=== PATIENT | female | born 1965 | race African-American/Black ===

== ENCOUNTER 2022-12-26 12:41 | Outpatient (CLI) | payer MEDICARE, MEDICAID, SELFPAY ==
--- NOTE | ~2022-12-26 | XR_ITS ---
Right Knee Technique: AP, lateral, and sunrise views were obtained. Clinical History: Osteoarthritis Findings: No fracture or dislocation is seen. There are large tricompartmental osteophytes. There is narrowing in all 3 joint compartments. Soft tissues are unremarkable. No joint effusion is seen. Impression: Severe tricompartmental osteoarthritis, as detailed above. Reviewed, dictated and finalized at location . Impression: Severe tricompartmental osteoarthritis, as detailed above.
--- NOTE | ~2022-12-26 | XR_ITS ---
Left foot Technique: AP and lateral standing views were obtained. Clinical History: Osteoarthritis Findings: No acute fracture or dislocation is seen. There is mild hallux valgus. There are minimal de generative changes at the midfoot articulations. Soft tissues are unremarkable. Impression: Mild hallux valgus and minimal degenerative change at the midfoot articulations. Reviewed, dictated and finalized at location . Impression: Mild hallux valgus and minimal degenerative change at the midfoot articulations .
--- NOTE | ~2022-12-26 | XR_ITS ---
Left Knee Technique: AP, lateral, and sunrise views were obtained. Clinical History: Osteoarthritis Findings: No fracture or dislocation is seen. There a large tricompartmental osteophytes. There is na rrowing of the medial and patellofemoral compartments. Small joint effusion is seen. Impression: Advanced tricompartmental osteoarthritis, as detailed above. Small joint effusion. Reviewed, dictated and finalized at location . Impression: Advanced tricompartmental osteoarthritis, as detailed above. Small joint effusion.
--- NOTE | ~2022-12-26 | XR_ITS ---
Bilateral Hands Technique: Bilateral PA, oblique, and lateral views, and ball-catcher's view were obtained. Clinical History: Osteoarthritis Findings: No acute fracture or dislocation is seen. There is minimal degenerative change of the bilat eral second PIP joints. There is moderate degenerative change of the left first carpal metacarpal kavon nt. There is mild degenerative change at the right first carpometacarpal joint. Soft tissues are unre markable. Impression: Moderate osteoarthritis of the left first CMC joint. Additional mild degenerative changes bilaterally, as detailed above. Reviewed, dictated and finalized at location [facility]. Impression: Moderate osteoarthritis of the left first CMC joint. Additional mild degenerative changes bilaterally, as detailed above.
--- NOTE | ~2022-12-26 | XR_ITS ---
Right foot Technique: AP and lateral standing views were obtained. Clinical History: Osteoarthritis Findings: No acute fracture or dislocation is seen. There is mild hallux valgus with minimal degenera tive change at the first MTP joint. Soft tissues are unremarkable. Impression: Mild hallux valgus with minimal degenerative change at the first MTP joint. Reviewed, dictated and finalized at [facility]. Impression: Mild hallux valgus with minimal degenerative change at the first MTP joint.
[2022-12-26 13:20] LABS: Hematocrit 40.5 % (37.0-47.0); Hemoglobin 13.2 g/dL (12.0-15.0); Mean Corpuscular HGB Conc 32.6 g/dl (32-36); Mean Corpuscular Hemoglobin 26.9 pg (26-34); Mean Corpuscular Volume 82.5 fl (80-100); Mean Platelet Volume 8.7 fl (7.4-10.4); Platelet Count Result 393 k/mm3 (150-375); Red Blood Count 4.91 M/mm3 (4.2-5.4); Red Cell Distribution Width 13.9 % (11.5-14.5); White Blood Count 8.8 K/mm3 (4.5-10.0)
[2022-12-26 13:32] LABS: Alanine Aminotransferase 19 U/L (6-35); Albumin Level 4.6 g/dL (3.5-5.1); Alkaline Phosphatase 107 U/L (38-126); Anion Gap 10 mmol/L (8-16); Aspartate Amino Transferase 17 U/L (14-36); Bilirubin,Total 0.4 mg/dL (0.2-1.3); Blood Urea Nitrogen 14 mg/dL (7-17); Calcium 9.1 mg/dL (8.4-10.2); Carbon Dioxide 20 mmol/L (22-30); Chloride 103 mmol/L (98-107); Estimated Glomerular Filt Rate > 60; Glucose 111 mg/dL (65-110); Sodium 133 mmol/L (137-145); Uric Acid 5.8 mg/dL (2.5-7.5)
[2022-12-26 13:34] LABS: Rheumatoid Factor < 8.6 IU/ML (<12)
[2022-12-26 13:36] LABS: Appearance Urine Clear (Clear); Bacteria Urine None Seen /hpf; Bilirubin Urine Negative (Negative); Blood Urine Negative (Negative); Color Urine Yellow (Yellow); Glucose Urine UA 3+ mg/dL (Negative); Ketones Urine Trace mg/dL (Negative); Leukocyte Esterase Ur Negative LEU/UL (Negative); Need Manual Microscopic Reviewed; Nitrate Urine Negative (Negative); Protein Urine Trace mg/dL (Negative); RBC Urine 0-2 /hpf (0-2); Specific Grav Ur 1.023 (1.001-1.035); Squamous Epithelial Cell Urine Few /hpf (Few); Urobilinogen Urine 0.2 mg/dL (<2.0); WBC Urine 0-5 /hpf; pH Urine 5.5 (5.0-9.0)
[2022-12-26 13:55] LABS: Add Urine Microscopic? YES
[2022-12-26 14:57] LABS: Erythrocyte Sedimentation Rate 14 mm/hr (0-20)
[2022-12-26 15:24] LABS: Vitamin D 25 Hydroxy 55.4 ng/mL
[2022-12-28 13:24] LABS: Quantiferon TB Plus, 1T POSITIVE (NEGATIVE); TB1-NIL 9.93 IU/mL; TB2-NIL 9.98 IU/mL
[2022-12-29 10:41] LABS: Anti Cyclic Citrullinated Pept <16 Units (<20)
[2022-12-30 09:47] LABS: SM Antibody <1.0; SM/RNP Antibody <1.0
[2023-01-03 08:19] LABS: Reference Lab Test Result <0.2
== END 2022-12-26 12:42 | disposition home or self-care (01) ==
PROVIDERS: PCP Internal Medicine; Visit Provider Internal Medicine
DX: M19.042 Primary osteoarthritis, left hand (principal); M17.0 Bilateral primary osteoarthritis of knee; M20.12 Hallux valgus (acquired), left foot; M20.11 Hallux valgus (acquired), right foot; M25.462 Effusion, left knee; Z71.89 Other specified counseling; Z79.899 Other long term (current) drug therapy
CPT/HCPCS: 36415; 73130; 73562; 73620; 80053; 81001; 82306; 84550; 85027; 85652; 86038; 86200; 86235; 86430; 86480